=== PATIENT | male | born 1950 | race Caucasian/White ===

== ENCOUNTER → 2023-10-20 10:18 | Outpatient (REF) | payer MEDICARE, OTHER, SELFPAY ==
[2023-10-20 12:36] LABS: HDL Cholesterol 35 mg/dl; LDL Cholesterol, Calculated 73 mg/dl; Total Cholesterol 143 mg/dl (50-199); Triglyceride 177 mg/dl (10-149); Very Low Density Lipoprotein 35 mg/dl (0-30)
[2023-10-20 13:05] LABS: Glycohemoglobin (HgbA1c) 6.2 % (4.0-5.6)
== END ==
LOC: HWLAB 10:18
PROVIDERS: ATTENDING PHYSICIAN Student in an Organized Health Care Education/Training Program
DX: E78.00 Pure hypercholesterolemia, unspecified (principal); I10 Essential (primary) hypertension; R73.03 Prediabetes
CPT/HCPCS: 36415; 80061; 83036

== ENCOUNTER → 2023-12-22 08:43 | Outpatient (REF) | payer MEDICARE, OTHER, SELFPAY ==
[2023-12-22 13:01] LABS: TSH Reflex To Free T4 1.54 uIU/ml (0.47-4.68)
[2023-12-22 13:36] LABS: Folate 7.5 ng/ml (2.76-20); Vitamin B12 223 pg/ml (239-931)
== END ==
LOC: HWRAD 08:43
PROVIDERS: ATTENDING PHYSICIAN Student in an Organized Health Care Education/Training Program; FAMILY PHYSICIAN Family Medicine; REFERRING PHYSICIAN Nurse Practitioner Adult Health
DX: Z87.891 Personal history of nicotine dependence (principal); R41.3 Other amnesia; E53.8 Deficiency of other specified B group vitamins; G25.0 Essential tremor; Z86.73 Personal history of transient ischemic attack (TIA), and cerebral infarction without residual deficits
CPT/HCPCS: 36415; 71271; 82607; 82746; 84443

== ENCOUNTER → 2024-06-07 08:36 | Outpatient (REF) | payer MEDICARE, OTHER, SELFPAY ==
[2024-06-07 12:54] LABS: % Basophils 0.7 % (0-2); % Immature Granulocytes 0.6 % (0-0.5); % Lymphocytes 28.7 % (20.5-51.1); % Monocytes 10.2 % (1.7-9.3); % Neutrophils 56.8 % (42.2-75.2); Absolute Basophils 0.1 10^3/uL (0-0.2); Absolute Eosinophils 0.3 10^3/uL (0-0.7); Absolute Immature Granulocytes 0.1 10^3/uL (0-0.05); Absolute Monocytes 1.1 10^3/uL (0.1-0.6); Hematocrit 46.4 % (39.0-52.0); Hemoglobin 14.9 g/dL (13.0-18.0); Mean Corp Hgb Conc. 32.1 g/dL (33.0-37.0); Mean Corpuscular Hgb 31.4 pg (27.0-31.0); Mean Corpuscular Volume 97.9 fL (80.0-94.0); Mean Platelet Volume 10.6 fL (7.4-10.4); Nucleated Red Blood Cells % 0 % (-); Platelet Count 251 10^3/uL (130-400); Red Blood Cell Count 4.74 10^6/uL (4.70-6.10); Red Cell Dist. Width 14.2 % (11.5-14.5); White Blood Cell Count 10.5 10^3/uL (4.8-10.8)
[2024-06-07 13:07] LABS: Glycohemoglobin (HgbA1c) 6.2 % (4.0-5.6)
[2024-06-07 13:40] LABS: ALT (SGPT) 25 U/L (0-50); AST (SGOT) 25 U/L (17-59); Albumin 4.7 g/dl (3.5-5.0); Alkaline Phosphatase 111 U/L (38-126); Blood Urea Nitrogen 27 mg/dl (9-20); Carbon Dioxide 25 mmol/L (22-30); Chloride 107 mmol/L (98-107); Glucose 117 mg/dl (70-99); HDL Cholesterol 36 mg/dl; LDL Cholesterol, Calculated 85 mg/dl; Potassium 4.9 mmol/L (3.5-5.1); Sodium 144 mmol/L (135-145); Total Bilirubin 0.7 mg/dl (0.2-1.3); Total Cholesterol 146 mg/dl (50-199); Total Protein 7.6 g/dl (6.3-8.2); Triglyceride 126 mg/dl (10-149); Very Low Density Lipoprotein 25 mg/dl (0-30); eGFR > 60.00
[2024-06-07 13:56] LABS: Microalbumin, Random Urine 3.4 mg/dl (0.6-1.7); Microalbumin/creatinine Ratio 27.6 mg/g
[2024-06-07 13:57] LABS: Urine Albumin 1+ (Neg - Trace); Urine Bilirubin Negative (Negative); Urine Character Clear (Clear); Urine Color Yellow; Urine Glucose Negative (Negative); Urine Ketone Negative (Negative); Urine Leukocyte Negative (Negative); Urine Nitrite Negative (Negative); Urine Occult Blood Negative (Negative); Urine Urobilinogen Negative (Neg - 1+)
[2024-06-07 14:08] LABS: PSA, Total - Screen 1.58 ng/ml (0.0-4.0); TSH Reflex To Free T4 1.46 uIU/ml (0.47-4.68)
[2024-06-07 14:19] LABS: Urine Red Blood Cell 0-2 /HPF (0-2); Urine White Cell 0-2 /HPF (0-5)
[2024-06-07 14:27] LABS: Vitamin B12 729 pg/ml (239-931)
== END ==
LOC: HWLAB 08:36
PROVIDERS: ATTENDING PHYSICIAN Family Medicine
DX: Z86.73 Personal history of transient ischemic attack (TIA), and cerebral infarction without residual deficits (principal); Z13.0 Encounter for screening for diseases of the blood and blood-forming organs and certain disorders involving the immune mechanism; E78.00 Pure hypercholesterolemia, unspecified; I10 Essential (primary) hypertension; E66.9 Obesity, unspecified; R25.1 Tremor, unspecified; Z12.5 Encounter for screening for malignant neoplasm of prostate; E53.8 Deficiency of other specified B group vitamins; R73.03 Prediabetes; Z13.89 Encounter for screening for other disorder
CPT/HCPCS: 36415; 80053; 80061; 81003; 81015; 82043; 82570; 82607; 83036; 84443; 85025; G0103

== ENCOUNTER → 2024-07-04 14:11 | Outpatient (REF) | payer MEDICARE, OTHER, SELFPAY | LOC: DHSLP 14:11 | PROVIDERS: ATTENDING PHYSICIAN Internal Medicine Critical Care Medicine; FAMILY PHYSICIAN Nurse Practitioner Adult Health | DX: G47.33 Obstructive sleep apnea (adult) (pediatric) (principal) | CPT/HCPCS: 95806 ==

== ENCOUNTER 2024-10-14 22:29 | Inpatient (IN) | payer MEDICARE, OTHER, SELFPAY ==
[2024-10-14 17:38] VITALS: BP 168/75
[2024-10-14 18:00] LABS: Hematocrit 41.3 % (39.0-52.0); Hemoglobin 14.0 g/dL (13.0-18.0); Mean Corp Hgb Conc. 33.9 g/dL (33.0-37.0); Mean Corpuscular Volume 93.7 fL (80.0-94.0); Nucleated Red Blood Cells % 0 % (-); Platelet Count 198 10^3/uL (130-400); Red Cell Dist. Width 14.0 % (11.5-14.5)
[2024-10-14 18:11] LABS: ALT (SGPT) 24 U/L (0-50); AST (SGOT) 26 U/L (17-59); Albumin 4.3 g/dl (3.5-5.0); Alkaline Phosphatase 94 U/L (38-126); Blood Urea Nitrogen 20 mg/dl (9-20); Calcium 9.5 mg/dl (8.4-10.2); Carbon Dioxide 23 mmol/L (22-30); Chloride 107 mmol/L (98-107); Glucose 111 mg/dl (70-99); Potassium 4.2 mmol/L (3.5-5.1); Sodium 138 mmol/L (135-145); Total Protein 7.1 g/dl (6.3-8.2); eGFR > 60.00
--- NOTE | 2024-10-14 18:23 | ED.GENMED ---
History of Present Illness
General
Chief Complaint: Change in Mental Status
Time Seen by Provider: 10/14/24 18:01
History of Present Illness
History of Present Illness:
74-year-old male with history of hypertension and hyperlipidemia presents to the emergency department for evaluation of confusion. Does have underlying dementia however states over the past 1 to 2 days has had waxing waning episodes of severe
aphasia and confusion. Noted to be febrile on arrival. Patient essentially unable to provide any history at this point.
Past History
Past History
ED Past Medical History: HTN and Hypercholesterolemia
ED Past Surgical History: None
Social History
Tobacco: Smoker
Alcohol: Occasional
Personal:
Living: with family
Review of Systems
Review of Systems
Allergies reviewed?: Yes
All Other Systems: ROS reviewed and negative except as documented in HPI and ROS
Phy Exam
Physical Exam
Physical Exam:
GEN: Well appearing, NAD, WDWN
HEENT: Oral mucosa moist, no scleral icterus
Cardiac: Mildly tachycardic, regular
Lung: No respiratory distress, no tachypnea, lungs clear to auscultation bilateral
MSK: No gross deformity or injuries
Skin: Good color, no pallor or jaundice, no rashes
Neuro: Alert, follows commands, profoundly aphasic, nonsensical speech
Psych: Calm, cooperative
Sepsis
Sepsis Screening
Sepsis Assessment: Sepsis
Sepsis Screen
Sepsis Screen: Sepsis
Date: 10/15/24
Time: 00:58
Course
Orders/Labs/Results
Orders:
Orders
10/14/24 17:46
COVID-19 Antigen Urgent
Source: Nasal Swab
Complete Blood Count/With Diff Urgent
Comprehensive Metabolic Panel Urgent
Blood Culture Urgent
RAFFAELE Source: Blood/Venous
Specimen Description:
Influenza A+B Rapid Molecular Urgent
RAFFAELE Source: Nasal Swab
Specimen Description:
10/14/24 17:51
Lactic Acid Urgent
10/14/24 18:36
Urinalysis Reflex To Culture Urgent
Date Specimen was Collected: 10/14/24
Time Specimen was Collected: 17:57
Urine Microscopic Reflex Cult Urgent
10/14/24 18:53
CT Head W/o Iv Contrast Urgent
Comment:
Reason For Exam: confusion, slurred speech, fever
CR Chest - 2 Views Urgent
Comment:
Reason For Exam: fever
10/14/24 19:01
Acetaminophen [Tylenol] 650 mg PO NOW STA
10/14/24 20:40
Blood Culture Urgent
RAFFAELE Source: Blood/Venous
Specimen Description:
10/14/24 21:05
CefTRIAXone [Rocephin] 2,000 mg IV NOW STA
10/14/24 21:06
Vancomycin [Vancocin] 2,000 mg 0.9% Sodium Chloride 500 ml [Nss] 500 ml IV NOW
10/14/24 21:23
Acyclovir [Zovirax Injection] 750 mg 0.9% Sodium Chloride 250 ml [Nss] 250 ml IV NOW
10/14/24 21:25
CSF Cell Count Urgent
Date Specimen was Collected: 10/14/24
Time Specimen was Collected: 21:06
CSF Tube Number: 1
Comment: Tube #1
Spinal Fluid Glucose Urgent
Date Specimen was Collected: 10/14/24
Time Specimen was Collected: 21:06
Spinal Fluid Protein Urgent
Date Specimen was Collected: 10/14/24
Time Specimen was Collected: 21:06
CSF Culture with Gram Stain Urgent
RAFFAELE Source: Csf
Specimen Description:
Date Specimen was Collected: 10/14/24
Time Specimen was Collected: 21:06
Meningitis Panel, CSF by PCR Urgent
RAFFAELE Source: Csf
Specimen Description:
10/14/24 21:55
Bladder Scan As Directed
Follow Bladder Retention/Intermittent Cath Algorithm?: Yes
PRN if no void in __ hours: 6
Frequency: Per Retention Algorithm
If Bladder Scan Result >: 400
then:: Straight cath
Straight Cath As Directed
Frequency: Per Retention Algorithm
Additional Instructions: straight cath as needed per acute urinary retention algorithm for 24 hrs
Additional Instructions: for bladder scan greater than 400 mL
Oxygen Therapy [O2 Therapy] [RESP] Routine
Nasal Cannula Liter Flow: 2 LPM
Titrate/Wean O2 to maintain O2 sat greater than (%): 92
10/14/24 21:59
Admit/Transfer Patient As Directed
Co-Sign Provider:
Level of Care: Inpatient admission
Assign to:: Medical/Surgical
Physician / Group: gemiin adrian
Diagnosis: Febrile illness unclear etiology pending LP
Reason for Hospitalization: Febrile illness unclear etiology pending LP
Expected length of stay greater than two midnights?: Yes
ELOS- Estimated Length of Stay in days: 3
I certify the patient meets the requirements for IP care: Yes
Code Status As Directed
Resuscitation Status: Full Code
10/14/24 22:02
PRN Pain Medication Management As Directed
May give lesser potent ordered pain med per pt: Yes
preference::
Protocol:: Medication orders for pain may be administered in a
manner that supports deferring to patient preference
when the pt is:
- Requesting an ordered lesser potent pain medication.
Least to most potent pain medications are defined
as: acetaminophen < NSAID < tramadol < opioids
(morphine, oxycodone, hydromorphone).
- Requesting a lesser dose of the same medication IF
ORDERED.
- Requesting a less intrusive route of administration
if both routes are prescribed by the provider (PO <
IV).
10/15/24 00:13
Acetaminophen [Tylenol] 650 mg PO Q4HPRN PRN
Albuterol [ProAIR HFA INHALER] 2 puff INH R Q4HPRN PRN
10/15/24 00:13
Activity As Directed
Activity Level: With Assistance
Intake/ Output As Directed
Frequency: Per unit guidelines
Pneumatic Compression Sleeves As Directed
Type: Knee high
Precautions As Directed
Type of Precautions: Other
Comment: fall
Vital Signs As Directed
Frequency: Per unit guidelines
O2 Therapy [RESP] Routine
Nasal Cannula Liter Flow: 2 LPM
Titrate/Wean O2 to maintain O2 sat greater than (%): 92
Pulse Ox/spot Check [RESP] Routine
Quantity: 1
Ot Eval And Treat Routine
Pt Eval And Treat Routine
Activity Level: As Tolerated
DX Deep Vein Thrombosis Video Routine
10/15/24 06:00
Complete Blood Count/With Diff IN AM
Comprehensive Metabolic Panel IN AM
Magnesium IN AM
10/15/24 08:00
Bupropion(12Hr)Sustain Release [WELLBUTRIN SR (12 hour sustained release)] 150 mg PO BID
10/15/24 Dinner
Regular
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
10/15/24 22:00
Atorvastatin [Lipitor] 10 mg PO HS
Lisinopril [Zestril] 5 mg PO HS
10/16/24 06:00
Complete Blood Count/With Diff IN AM
Comprehensive Metabolic Panel IN AM
10/17/24 06:00
Complete Blood Count/With Diff IN AM
Comprehensive Metabolic Panel IN AM
Abnormal Lab Results
10/14/24 10/14/24 10/14/24
17:46 18:36 21:25
WBC 14.2 H 10^3/uL
(4.8-10.8)
RBC 4.41 L 10^6/uL
(4.70-6.10)
MCH 31.7 H pg
(27.0-31.0)
Abs Immat Gran (auto) 0.1 H 10^3/uL
(0-0.05)
Absolute Neuts (auto) 12.5 H 10^3/uL
(1.4-6.5)
Absolute Lymphs (auto) 1.0 L 10^3/uL
(1.2-3.4)
Neutrophils % 88.0 H %
(42.2-75.2)
Lymphocytes % 6.8 L %
(20.5-51.1)
Glucose 111 H mg/dl
(70-99)
Ur Occult Blood Reflex 1+ A
(Negative)
Urine RBC 3-6 A /HPF
(0-2)
Urine Albumin (Reflex) 1+ A
(Neg - Trace)
CSF Total Protein 63 H mg/dl
(12-60)
10/14/24 17:46
10/14/24 17:46
Vital Signs
Initial and Last Documented VS:
Initial Vital Signs
Temp Pulse Resp BP Pulse Ox
102.8 F H 89 18 168/75 98
10/14/24 17:38 10/14/24 17:38 10/14/24 17:38 10/14/24 17:38 10/14/24 17:38
Last Documented Vital Signs
Temp Pulse Resp BP Pulse Ox
98.9 F 100 14 116/89 98
10/14/24 22:04 10/14/24 23:30 10/14/24 23:30 10/14/24 23:00 10/14/24 18:24
Procedures
Lumbar Puncture
Indication for procedure:: fever/encephalopathy w/o source
Procedure completed by: Augustine Bradford PA-C
Consent form signed: No
If no, reason: Emergency procedure (Verbal consent obtained from spouse)
Anesthesia/sedation: 1% Lidocaine
Preparation: cleaned with Betadine and cleaned with Hibiclens
Position: sitting
Needle Size: 22 gauge
Needle Type: Lumbar Needle
Number of attempts: 3
Dressing applied to puncture site: bandaid
Complications: none
MDM/Problems Addressed
MDM/Problems Addressed:
74-year-old male presents with fever and altered mental status. Broad workup revealed no clear acute etiology to symptoms thus lumbar puncture was obtained which yielded clear fluid and no signs of CSF infection. Will admit to the hospitalist
service for further workup and management
*Pulse Oximetry
SaO2: 98
Oxygen Mode of Delivery: Room air
Patient hypoxic: no
*Critical Care Note
Total Time (30-74mins, 75-104mins- exclusive of procedures): Not Applicable
ED Attending Note
-
Portions of this chart may have been created with voice recognition software.� Occasional wrong word or��sound alike� substitutions may have occurred due to the inherent limitations of voice recognition software.
Discharge Plan
Departure
Patient Disposition: Admit
Date of Disposition: 10/14/24
Time of Disposition: 21:08
Admit to: Med/Surg
Presentation/result/management discussed w/ accepting MD/DO: Hospitalist
Discharge Problem:
Fever, Toxic metabolic encephalopathy
Interventions
Interventions:
*Risk Screen - Suicide Last Done: 10/15/24 00:22
*General Assessment Last Done: 10/14/24 17:38
*Neglect/Abuse Screening Last Done: 10/14/24 17:38
*ED- Fall Risk Assessment Last Done: 10/14/24 17:38
*ED COVID-19 Vaccine History Last Done: 10/15/24 00:22
*Nursing Disposition Last Done: 10/14/24 23:34
ED- Cardiac Assessment Last Done: 10/14/24 18:08
ED- Neurological Assessment Last Done: 10/14/24 18:08
ED- Pulmonary Assessment Last Done: 10/14/24 18:08
ED Swallowing Screen Last Done: 10/14/24 18:30
Discharge Date and Time
Discharge Date/Time: 10/14/24 23:35
[2024-10-14 18:34] LABS: COVID-19 Antigen Negative (Negative)
[2024-10-14 18:46] LABS: Urine Character Clear (Clear)
[2024-10-14 19:00] VITALS: BP 136/107
[2024-10-14 19:03] LABS: Urine White Cell 0-2 /HPF (0-5)
[2024-10-14] MEDS: TYLENOL 650 MG PO (19:07)
[2024-10-14 20:39] VITALS: BP 126/62
[2024-10-14 21:00] VITALS: BP 129/66
--- NOTE | 2024-10-14 21:24 | HPS.HSE ---
Family Physician
-
Family Physician: MEE Mars
Chief Complaint
-
Fever, confusion
History of Present Illness
74-year-old male with history of dementia new diagnosis per Leyla, has had increased confusion over the past 1 to 2 days then his baseline. He was noted to be febrile on admission 102.8F she was not aware he was running any fever. Patient is
oriented to name first and last, place, Leyla. He denies headache, blurred vision, sore throat, runny nose, chest pain, palpitations, cough, shortness of breath, abdominal pain, nausea, vomiting, diarrhea. He has history of sleep apnea with a
recent nasal pillow that his states he is not tolerating he is currently on room air at 88% and 93% on 2 L nasal cannula. They are waiting for someone to adjust his sleep apnea machine. He also complains of frequent urination at night with
difficulty voiding including dribbling. I made both the patient and aware we will check bladder scan for him as he may have BPH and not may be emptying well.
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
gangrenous appendicitis with perforation and abscess/generalized peritonitis 11/01/2017 and ileus, essential tremors
Medical History
Past Medical History
Past Medical History: Reports Other
Additional Past Medical History:
hypertension
hyperlipidemia
CVA x 2
squamous cell skin cancer on the nose with resection and reconstruction
smoker
gangrenous appendicitis with perforation and abscess/generalized peritonitis 11/01/2017 and ileus
Past Surgical History: Reports Other
Additional Past Surgical History:
gangrenous appendicitis with perforation and abscess/generalized peritonitis 11/01/2017 status post removal and ileus
Social History
Tobacco: Smoker (3 to 4 cigarettes a day prior 1 pack a day x 58 years)
Alcohol: None
Drug: None
Personal:
Living: With Family ( Leyla)
Employment: Retired
Family History
Family History: Unable to Obtain
Allergies / Home Medications
Allergies reflects when Allergies were last updated in [facility].
Home Medications with original date entered in [facility]
Allergy/Medication List:
Allergies
Allergy/AdvReac Type Severity Reaction Status Date / Time
No Known Allergies Allergy Verified 10/14/24 17:38
Home Medications
atorvastatin 10 mg tablet 10 mg PO HS 10/30/17
bupropion HCl 150 mg tablet,12 hr sustained-release 150 mg PO BID 10/30/17
lisinopril 5 mg tablet 5 mg PO HS 10/30/17
acetaminophen 325 mg tablet 650 mg (2 x 325 mg) PO Q4HPRN PRN mild to moderate pain #0 tabs 11/04/17
ibuprofen 200 mg tablet 400 - 600 mg (2 - 3 x 200 mg) PO Q6HPRN PRN mild to moderate pain #0 tabs 11/04/17
albuterol 90 mcg inhalation Q4H PRN Wheezing shortness of breath 10/14/24
Review of Systems
-
History Source: Patient and Family ( Pat at bedside)
A 12 point ROS was completed and negative except as noted: Yes
Constitutional: Reports Fever, Fatigue, Chills and Other (Increased confusion per ); Denies Weight Loss
EENT: Reports Other (Widespread periodontal disease exposing 3 corners of roots of teeth held in by plaque); Denies Sore Throat, Mouth Swelling or Runny Nose
Respiratory: Denies Cough or Trouble Breathing
Cardiac: Denies Chest Pain, Diaphoresis, Palpitations or Syncope
Abdomen/GI: Denies Abdominal Pain, Nausea, Vomiting, Diarrhea, Constipated, Bloody Stools, Black Stools or Anorexia
: Reports Frequency (With dribbling); Denies Dysuria, Flank Pain, Incontinence, Difficulty Voiding, Urgency, Bleeding or Dark Urine
Musculoskeletal: Denies Joint Pain or Edema
Skin: Denies Itching or Rash
Neurological: Denies Dizzy, Headache or Weakness
Endocrine: Reports No Symptoms
Hematologic/Lymphatic: Reports No Symptoms
Psych: Reports Calm
Physical Exam
Vital Signs
Vital Signs
Temp Pulse Resp BP Pulse Ox
102.8 F H 92 21 126/62 98
10/14/24 17:38 10/14/24 20:39 10/14/24 20:39 10/14/24 20:39 10/14/24 18:24
Physical Exam
General: Comfortable, Conversant, Fever and Chills; No Pain
HEENT: NormoCephalic, Anicteric, Moist mucous membranes, Atraumatic, PERRLA, [place] Conjunctivae, No Ptosis, Nose Appears Normal, Neck Nontender (Negative nuchal rigidity) and Other (Widespread periodontal disease exposing 3 corners of roots of teeth
held in by plaque); No Pharyngeal Erythema
Respiratory: Clear; No Wheezes, Rales, Rhonchi or Crackles
Cardiac: S1/S2 and Regular Rhythm; No Murmur, Rub, Gallop or Peripheral Edema
Breast: Deferred by me
GI: Soft, Non Tender, Non Distended, Normal Bowel Sounds and No Hepatosplenomegaly
Rectal: Deferred by Provider
Genito-urinary: Deferred by me
Musculoskeletal: No Clubbing, No Cyanosis and No Edema
Skin: Warm and Dry; No Rash
Neuro: Awake, Alert, Oriented (To name, place, some of history), Nonfocal/grossly intact, Cranial Nerves Intact and No Sensory Deficits; No Slurred Speech, Facial Droop, Tremors or Sedated
Psych: Calm
Laboratory Results
-
10/14/24 17:46
10/14/24 17:46
Laboratory Results
Lactic Acid 1.5 mmol/L (0.7-2.0) 10/14/24 17:51
Total Bilirubin 0.6 mg/dl (0.2-1.3) 10/14/24 17:46
AST 26 U/L (17-59) 10/14/24 17:46
ALT 24 U/L (0-50) 10/14/24 17:46
Alkaline Phosphatase 94 U/L (38-126) 10/14/24 17:46
Data Reviewed
-
CT Scan: Report Reviewed by me
Lab Data: Labs Reviewed by me
Impression/Plan
-
Impression/plan:
Admit to [facility]
#Fever unknown etiology
-102.8F, HR 92, 126/62
WBC 14.2 with left shift
- Influenza/COVID-negative
- Urinalysis negative
-Blood cultures x 2
- IV Rocephin, IV vancomycin continue patient was given single dose valacyclovir will hold
-Consult infectious disease
-LP fluid cytology pending
-Private room
CXR: No evidence for pneumonia
CT head:
1. Moderate diffuse cerebral and cerebellar volume loss.
2. 3.4 cm band of ENCEPHALOMALACIA in the LEFT BASAL GANGLIA and periventricular left frontal lobe consistent with either chronic infarction or a chronic resolved intraparenchymal hemorrhage.
3. Mild periventricular white matter leukoaraiosis.
4. No CT evidence for acute intracranial hemorrhage or transcortical infarct.
#Sleep apnea
New diagnosis for patient has tried nasal pillow but feels claustrophobic
-Currently 87% on room air 93% 2 L nasal cannula
#Difficulty with urination dribbling likely BPH
-Will check postvoid bladder scans
#New diagnosis of dementia�mild
Patient oriented to name, place, per Pat tends to get more confused at nighttime
- Fall precautions
#Hypertension
BP 126/62
Continue lisinopril 5 mg at bedtime
#Hyperlipidemia
Continue atorvastatin 10 mg at bedtime
#CVA x 2 reports a stroke in 2001 and 2005( requiring tPA) does not recall a hemorrhagic CVA
Per CT 3.4 cm band of ENCEPHALOMALACIA in the LEFT BASAL GANGLIA and periventricular left frontal lobe consistent with either chronic infarction or a chronic resolved intraparenchymal hemorrhage.
- Advised patient and not to be taking ibuprofen Advil Aleve Motrin, Aggrenox unless discussed with neurologist
#Smoker
smoker 3 to 4 cigarettes a day prior 1 pack a day x 54 years
-Cessation advised
- Continue albuterol inhaler as needed
#Periodontal disease severe
Patient's teeth randomly pop out
Will add soft diet recommended to follow-up with different dentist
#Essential tremors hands
Continue propranolol ER 120 mg daily with hold parameters
Other PMH:
Squamous cell skin cancer on the nose with resection and reconstruction
Smoker
Gangrenous appendicitis with perforation and abscess/generalized peritonitis 11/01/2017 and postop ileus
DVT prophylaxis
SCDs
Full code
[2024-10-14] MEDS: VANCOCIN 540 MG IV (21:35)
[2024-10-14 21:38] LABS: CSF Color Colorless
[2024-10-14] MEDS: ROCEPHIN 2000 MG IV (21:39)
--- NOTE | 2024-10-14 21:42 | W.PN.UPDATE ---
Update Note
Progress Note Update
Patient seen and controlled [employer]. I agree defined as mentioned physical. I concur with assessment and plan unless stated otherwise.
Briefly, this is a 74-year-old male with past medical history significant for hypertension, CVA, hyperlipidemia, dementia, emphysema and chronic tobacco use presenting to the emergency department with 2 days of waxing and waning alteration in mental
status. Apparently has been having severe episodes of aphasia and confusion. Was quite febrile in the emergency department without any other localizing point in history. Patient is unable to provide any additional history.
On arrival in the emergency department he had a temp of 102.8, blood pressure was 126/60 with a pulse of 90 and he was satting 98% on room air. Chest x-ray showed no acute infiltrates. CT of the head showed no acute interval disease.
Otherwise count 14.2 with otherwise normal CBC. Electrolytes and BUN/creatinine were all normal. LFT shows no acute abnormalities. UA was negative. Viral studies with COVID and influenza were negative.
LP performed with results pending.
Assessment and plan
74-year-old with history of dementia presenting to the emergency department with fever and altered mental status concerning for encephalitis/encephalopathy. He does not appear meningitic on exam but poor exam. No rash and no other source of
infection.
Admit to [facility]
- Status post LP, cell count, Gram stain, protein, glucose acute viral panel pcr pending
- Blood cultures
- Start vancomycin/ceftriaxone/acyclovir pending csf
- ID consultation
- IV fluids for now
DVT prophylaxis�heparin subcu
CODE STATUS�full code
[2024-10-14 21:47] LABS: Red Cell Count/CSF 1 mm^3; White Cell Count/CSF 1 mm^3 (0-5)
[2024-10-14 22:00] VITALS: BP 114/57
[2024-10-14] MEDS: ZOVIRAX INJECTION 265 MG IV (22:17)
[2024-10-14 23:00] VITALS: BP 116/89
--- NOTE | 2024-10-15 00:09 | PTCARENOTE ---
[facility] Pt attempting to get out of stretcher multiple times in the hallway. Pt forgetful and uncooperative. Pt transferred to bed in room and continues to try getting OOB. Pt unable to answer any admission questions d/t to poor
mentation status and confusion. Fall precautions in place. Frequent rounds continued.
[2024-10-15] MEDS: TYLENOL 650 MG PO ×2 (00:33→09:13)
[2024-10-15 01:08] VITALS: BP 124/73
[2024-10-15 06:43] LABS: Hematocrit 39.3 % (39.0-52.0); Hemoglobin 13.3 g/dL (13.0-18.0); Mean Corp Hgb Conc. 33.8 g/dL (33.0-37.0); Mean Corpuscular Volume 95.9 fL (80.0-94.0); Nucleated Red Blood Cells % 0 % (-); Platelet Count 177 10^3/uL (130-400); Red Cell Dist. Width 14.3 % (11.5-14.5)
--- NOTE | 2024-10-15 07:15 | W.PN.HOSP.TC ---
Addendum entered and electronically signed by Aysha Lira MD 10/15/24 16:32:
I saw and evaluated the patient independently. I reviewed the resident�s note and agree with findings and plan as documented by Dr. Rodríguez.
GENERAL: well developed, well nourished, male in no apparent distress
HEENT: NC/AT--poor dentition
HEART: regular rate and rhythm, +S1, +S2
LUNGS : clear to auscultation bilaterally
ABDOM: soft, nontender, nondistended, + bowel sounds
EXT: no cyanosis, clubbing, or edema
NEUROLOGIC: apparent dementia
Fever due to Unknown Cause--no obvious signs of infection--LP also negative--apprec ID--cont ABX for now--await cultures--COVID/flu neg
Severe Periodontal Disease --Patient with teeth that reportedly �pop� out---Possible origin for Fever of Unknown origin, though no abnormal tooth/gum/jaw findings were found on CT scan of the head---Encouraged outpatient follow up
Obstructive Sleep Apnea--New diagnosis. Noncompliant with CPAP due to claustrophobia
Mild Dementia with Increasing Confusion--New diagnosis of Dementia, Increasing confusion likely due to fever of unknown origin--at risk for delirium--follow
Essential Hypertension--Continue Lisinopril
Hyperlipidemia--Continue Atorvastatin
History of CVA x2--CT on 10/14/2024 demonstrated a 3.4 cm band of encephalomalacia in the left basal ganglia and periventricular left frontal lobe consistent with chronic infarction or chronic resolved hemorrhage--Patient should continue to avoid
NSAIDs
Tobacco Dependence--Patient smoked 1 ppd for 54 years, currently smokes 3-4 per day--Encouraged cessation--might need nicotine patch--Continue albuterol inhaler PRN for SOB
Essential Tremors--Continue home meds (Propranolol) with hold parameters
DVT proph
code status--FULL CODE
Original Note:
Today's Communication/Plan
-
Pending blood cultures
Assessment / Plan
Assessment / Plan
Assessment:
This is a 74 y/o male with pmhx of a new diagnosis of dementia and sleep apnea, hyperlipidemia, essential hypertension, CVA x2 (2001 and 2005). presented to the ED on 10/14/2024 with increasing confusion over the last 1-2 days found to have a fever
of 102.8 with no clear infection.
Plan:
Fever due to Unknown Cause
-Temperature 102.8, HR 92, BP 126/62, WBC 14.2 in the ED
-Unknown start date
-Current Temperature 99.5F on Acetaminophen
-UA, Influenza, COVID, Lumbar puncture cytology negative
-Blood cultures x2,
-Continue IV Rocephin and vancomycin
-Infectious Disease is following, will appreciate their insight.
Severe Periodontal Disease
-Patient with teeth that reportedly �pop� out
-Possible origin for Fever of Unknown origin, though no abnormal tooth/gum/jaw findings were found on CT scan of the head
-Continue soft diet
-Encouraged outpatient follow up
-T/c formal imaging assessment of teeth and jaw to rule out cause
Obstructive Sleep Apnea
-New diagnosis. Noncompliant with CPAP due to claustrophobia
-Encouraged follow up outpatient
Mild Dementia with Increasing Confusion
-New diagnosis of Dementia, Increasing confusion likely 2/2 to fever of unknown origin
-Patient at risk for Delirium
-Maintain fall precautions
Essential Hypertension
-Continue home meds (Lisinopril)
Hyperlipidemia
-Continue home meds (Atorvastatin)
History of CVA x2
-CT on 10/14/2024 demonstrated a 3.4 cm band of encephalomalacia in the left basal ganglia and periventricular left frontal lobe consistent with chronic infarction or chronic resolved hemorrhage
-Patient should continue to avoid NSAIDs
Tobacco Dependence
-Patient smoked 1 ppd for 54 years, currently smokes 3-4 per day
-Encouraged cessation
-Continue albuterol inhaler PRN for SOB
Essential Tremors
-Continue home meds (Propranolol) with hold parameters
Anticipated Discharge: 24 - 48 hours
Subjective/Interval History
-
Date of Service: October 15, 2024
Patient was doing well today. He denies abdominal pain, nausea, vomiting, headache, dizziness, chest pain, shortness of breath. When asked if he felt like he had any fevers, he stated he was told he had on in the ED. He does report he is aware he
had some confusion leading up to his hospitalization, but is unable to describe what happened. He reports feeling much better today regardless.
Objective Data
-
Labs:
Laboratory Results
10/15/24
06:27
WBC 9.3
Hgb 13.3
Hct 39.3
Plt Count 177
Sodium Pending
Potassium Pending
Chloride Pending
Carbon Dioxide Pending
BUN Pending
Creatinine Pending
Glucose Pending
Calcium Pending
Total Bilirubin Pending
AST Pending
ALT Pending
Alkaline Phosphatase Pending
Vital Signs:
Vital Signs
Temp Pulse Resp BP Pulse Ox
97.9 F 99 20 124/73 92
10/15/24 03:07 10/15/24 01:08 10/15/24 01:08 10/15/24 01:08 10/15/24 01:08
I&O
10/14/24 10/15/24 10/16/24
06:59 06:59 06:59
Output Total 375 / 375
Balance -375 / -375
Review of Systems
-
Unable to obtain full review of systems at this time due to: Dementia
History Source: Patient
Constitutional: Reports Fever; Denies Fatigue or Chills
Respiratory: Denies Cough, Trouble Breathing or Wheezing
Cardiac: Denies Chest Pain or Palpitations
Abdomen/GI: Denies Abdominal Pain, Nausea, Vomiting, Diarrhea or Constipated
Genitourinary: Denies Dysuria or Frequency
Musculoskeletal: Denies Joint Pain, Joint Swelling, Muscle Pain or Muscle Stiffness
Skin: Denies Itching or Rash
Neuro: Denies Dizzy, Headache, Weakness, Numbness or Lightheadedness
Physical Exam
-
General: Well Developed, Well Nourished, No Apparent Distress and Comfortable
HEENT: Normocephalic and Atraumatic
Respiratory: Clear to Auscultation
Cardiac: Regular Rhythm and S1/S2
GI: Soft, Nontender and Normal Bowel Sounds
Skin: Warm and Dry
Neuro: Awake and Alert
Psych: Calm
[2024-10-15 07:50] LABS: ALT (SGPT) 21 U/L (0-50); AST (SGOT) 26 U/L (17-59); Albumin 3.8 g/dl (3.5-5.0); Alkaline Phosphatase 78 U/L (38-126); Blood Urea Nitrogen 20 mg/dl (9-20); Calcium 9.1 mg/dl (8.4-10.2); Carbon Dioxide 24 mmol/L (22-30); Chloride 106 mmol/L (98-107); Estimated Creatinine Clearance 54 ml/min; Glucose 93 mg/dl (70-99); Magnesium 1.8 mg/dl (1.6-2.3); Potassium 4.3 mmol/L (3.5-5.1); Sodium 139 mmol/L (135-145); Total Protein 6.6 g/dl (6.3-8.2); eGFR > 60.00
--- NOTE | 2024-10-15 08:16 | PHA.VAN.IN ---
Assessment
- Assessment
Renal Function: Appears similar to baseline
Concomitant Antimicrobials: CEFTRIAXONE
AUC Dosing Plan
- Empiric Dosing
Initial / Loading Dose: 2000MG 10/15
Maintenance Regimen: 1500MG
Estimated AUC (mcg*h/mL): 478
Estimated Peak (mcg*h/mL): 32.7
Estimated Trough (mcg/ml): 10.8
Estimated Half Life (H): 14.1
- Monitoring
No levels ordered at this time: CONSIDER NEXT FEW DAYS
Pharmacokinetics Vancomycin I
- -
Patient Age: 74
Patient Sex: Male
Vancomycin Day #: 1
Indication: Other
Requesting Provider: CORTNEY SHIPLEY
Pertinent Antimicrobial Allergies:
NKDA
Height / Weight:
Height 5 ft 10 in
Actual Weight 94.5 kg
IBW in k
- Vital Signs / Lab Results
Temp Pulse Resp BP Pulse Ox
97.9 F 99 20 124/73 92
10/15/24 03:07 10/15/24 01:08 10/15/24 01:08 10/15/24 01:08 10/15/24 01:08
Lab Results - Hematology
10/14/24 10/15/24
17:46 06:27
WBC 14.2 H 9.3
Lab Results - Chemistry
10/14/24 10/15/24
17:46 06:27
BUN 20 20
Creatinine 1.1 1.2
Estimated Creat Clear 54
Albumin 4.3 3.8
10/14/24
17:51
Lactic Acid 1.5
Lab Results - Urine
10/14/24
18:36
Urine Nitrite (Reflex) Negative
Leukocyte Esterase Rfl Negative
Urine WBC (Reflex) 0-2
Ur Squamous Epith Cells 3-5
Microbiology Results
10/14/24 21:25 Gram Stain - Preliminary
Csf
10/14/24 21:25 Meningitis/Encephalitis Panel (PCR) - Final
Csf
10/14/24 17:46 Influenza Types A & B (EVER) - Final
Nasal Swab Negative for Influenza A & B, NAAT
Negative results must be combined with clinical observations
and patient history.
Nucleic Acid Amplification test (NAAT)performed on the
[employer] platform.
[2024-10-15] MEDS: WELLBUTRIN SR (12 hour sustained release) 150 MG PO ×2 (08:17→20:12)
[2024-10-15 08:53] VITALS: BP 125/70
--- NOTE | 2024-10-15 12:05 | CON.ID ---
Consultation
-
Date/Time Consultation Requested: 10/15/2024 0013
Date/Time Consultation Performed: 10/15/2024 1152
Requesting Provider: Renee Berrios
Performing Provider: Dr. Little
Reason for Consultation: Encephalopathy
Chief Complaint / Past History
History of Present Illness
Alexey Dia is a 74-year-old man with a significant past medical history of dementia and prior CVA being evaluated at the request of Renee Berrios in regards to change in mental status. History is obtained from chart review, along with patient
interview.
The patient presented to the emergency room on 10/14 secondary to reported confusion and episodes of aphasia over the prior 1 to 2 days. In the ER, he was found to be 102.8 degrees, and initial workup revealed a white count of 14.2. The patient
ultimately underwent LP with a finding only of mildly elevated protein.
The patient himself reports that he was recently down at the [facility] with friends. He notes that he had 'several beers' and was playing some type of game with the friends, but he could not remember anything further.
At this time he reports feeling hot and sweaty, and feels like he has a fever. He denies any headache. He denies any chest pain or shortness of breath. He denies any abdominal pain, nausea or vomiting.
Past History
Additional Past Medical History:
Emphysema
HTN
HLD
Dementia
Hx CVA
Past Surgical History: None
Allergy History:
No Known Allergies Allergy (Verified 10/14/24 17:38)
Medications Reviewed: Yes
Current Antibiotics:
Vancomycin
Ceftriaxone
Social History
Tobacco: Smoker (1/2 pack/day)
Alcohol: Occasional
Drug: None
Personal:
Living: With Family
Employment: Retired
Family History
Family History: Not Pertinent
Review of Systems
Vital Signs
Temp Pulse Resp BP Pulse Ox
99.5 F 86 17 125/70 95
10/15/24 08:53 10/15/24 08:53 10/15/24 08:53 10/15/24 08:53 10/15/24 08:53
Physical Exam
Physical Exam
Constitutional: No Acute Distress, Well Developed, Comfortable and Non-toxic
Head: Normocephalic
Eyes: Pupils Equal, Pupils Round, No Conjunctival Hemorrhage and Sclera Anicteric
Oral: No Thrush and No Ulcers
Cardiovascular: Regular Rate and S1/S2; Negative S3/S4 or Murmur
Pulmonary: Clear; Negative Wheezes, Rales or Rhonchi
Gastrointestinal: Soft, Non Tender, Non Distended and Normal Bowel Sounds
Genito-Urinary: Negative Muniz
Extremities: Negative Edema, Cyanosis or Erythema
Musculoskeletal: Negative Joint Swelling or Joint Effusion
Skin: Warm and Dry; Negative Rash or Jaundice
Neurological: AO x 3
Psychological: Calm
.
Lab / Diagnostic Study Results
10/15/24 06:27
10/15/24 06:27
Abs Immat Gran (auto) 0.1 10^3/uL (0-0.05) H 10/15/24 06:27
Absolute Neuts (auto) 7.7 10^3/uL (1.4-6.5) H 10/15/24 06:27
Absolute Lymphs (auto) 1.0 10^3/uL (1.2-3.4) L 10/15/24 06:27
Absolute Monos (auto) 0.4 10^3/uL (0.1-0.6) 10/15/24 06:27
Absolute Basos (auto) 0.0 10^3/uL (0-0.2) 10/15/24 06:27
Immature Gran % 0.5 % (0-0.5) 10/15/24 06:27
Neutrophils % 83.3 % (42.2-75.2) H 10/15/24 06:27
Lymphocytes % 11.2 % (20.5-51.1) L 10/15/24 06:27
Monocytes % 4.7 % (1.7-9.3) 10/15/24 06:27
Eosinophils % 0.0 % (0-6) 10/15/24 06:27
Basophils % 0.3 % (0-2) 10/15/24 06:27
Lactic Acid 1.5 mmol/L (0.7-2.0) 10/14/24 17:51
Ur Squamous Epith Cells 3-5 /LPF (Few) 10/14/24 18:36
Microbiology Results
Micro:
10/14/24 21:25 CSF Culture - Preliminary
Csf No Growth After 18-24 Hours
Gram Stain - Preliminary
10/14/24 21:25 Meningitis/Encephalitis Panel (PCR) - Final
Csf
10/14/24 20:40 Blood Culture - Pending
Blood/Venous
10/14/24 17:46 Influenza Types A & B (EVER) - Final
Nasal Swab Negative for Influenza A & B, NAAT
Negative results must be combined with clinical observations
and patient history.
Nucleic Acid Amplification test (NAAT)performed on the
[employer] platform.
10/14/24 17:46 Blood Culture - Pending
Blood/Venous
Imaging:
10/14/2024 CT head without contrast: moderate diffuse cerebral and cerebellar volume loss. 3.4 cm band of encephalomalacia in the left basal ganglia. Mild periventricular white matter leukoaraiosis. No CT evidence for acute intracranial hemorrhage
or transcortical infarct.
Assessment / Plan
Acute encephalopathy of unclear etiology
Fever
Leukocytosis; improved, although still with left shift
Emphysema
HTN
HLD
Dementia
Hx CVA
Recommendations:
At present, white count has improved, although patient still with left shift.
CSF studies essentially negative.
Blood cultures are currently pending.
Would discontinue further vancomycin. Continue with empiric ceftriaxone
Monitor white count and temperature curve.
Monitor for clinical improvement.
Further recommendations as additional data is returned.
[2024-10-15 14:26] VITALS: BP 108/51; PULSE 70; O2SAT 93
[2024-10-15 15:00] VITALS: BP 133/76
[2024-10-15 15:43] VITALS: BP 108/51; PULSE 73; O2SAT 93
--- NOTE | 2024-10-15 16:32 | CM ---
manager of purchasing reviewed patient's chart and met with patient, his spouse and daughter at bedside, patient lives with spouse in a 2 story home, patient is independent with adl's and ambulation, no dme, patient was driving but driving privileges have
been revoked by physician. Patient understands decision.
PCP: Dr. Malave
Pharmacy: [facility]
[2024-10-15] MEDS: ZESTRIL 5 MG PO (21:24)
[2024-10-15] MEDS: LIPITOR 10 MG PO (21:24)
[2024-10-15] MEDS: ROCEPHIN 1000 MG IV (21:25)
[2024-10-15] MEDS: STERILE WATER FOR INJECTION 10 ML IV (21:25)
[2024-10-15 23:59] VITALS: BP 116/59
[2024-10-16 06:00] VITALS: BMI 28.6
[2024-10-16 06:28] LABS: Hematocrit 38.0 % (39.0-52.0); Hemoglobin 13.1 g/dL (13.0-18.0); Mean Corp Hgb Conc. 34.5 g/dL (33.0-37.0); Mean Corpuscular Volume 94.1 fL (80.0-94.0); Nucleated Red Blood Cells % 0 % (-); Platelet Count 150 10^3/uL (130-400); Red Cell Dist. Width 14.2 % (11.5-14.5)
[2024-10-16 07:02] LABS: ALT (SGPT) 28 U/L (0-50); AST (SGOT) 45 U/L (17-59); Albumin 3.7 g/dl (3.5-5.0); Alkaline Phosphatase 66 U/L (38-126); Blood Urea Nitrogen 22 mg/dl (9-20); Calcium 8.5 mg/dl (8.4-10.2); Carbon Dioxide 20 mmol/L (22-30); Chloride 107 mmol/L (98-107); Estimated Creatinine Clearance 54 ml/min; Glucose 95 mg/dl (70-99); Potassium 4.4 mmol/L (3.5-5.1); Sodium 136 mmol/L (135-145); Total Protein 6.5 g/dl (6.3-8.2); eGFR > 60.00
--- NOTE | 2024-10-16 07:03 | W.PN.HOSP.TC ---
Addendum entered and electronically signed by Aysha Lira MD 10/16/24 13:35:
I saw and evaluated the patient independently. I reviewed the resident�s note and agree with findings and plan as documented by Dr. Rodríguez.
GENERAL: well developed, well nourished, male in no apparent distress
HEENT: NC/AT--poor dentition
HEART: regular rate and rhythm, +S1, +S2
LUNGS : clear to auscultation bilaterally
ABDOM: soft, nontender, nondistended, + bowel sounds
EXT: no cyanosis, clubbing, or edema
NEUROLOGIC: apparent dementia
Fever due to Pseudomonas bacteremia?--no obvious signs of infection, LP negative--blood culture positive for pseudomonas--apprec ID--cont ABX for now
Severe Periodontal Disease --Patient with teeth that reportedly �pop� out--- no abnormal tooth/gum/jaw findings were found on CT scan of the head---Encouraged outpatient follow up
Obstructive Sleep Apnea--New diagnosis. Noncompliant with CPAP due to claustrophobia
Mild Dementia with Increasing Confusion----mental status is improving, now mildly confused--New diagnosis of Dementia
Essential Hypertension--Continue Lisinopril
Hyperlipidemia--Continue Atorvastatin
History of CVA x2--CT on 10/14/2024 demonstrated a 3.4 cm band of encephalomalacia in the left basal ganglia and periventricular left frontal lobe consistent with chronic infarction or chronic resolved hemorrhage--Patient should continue to avoid
NSAIDs
Tobacco Dependence--Patient smoked 1 ppd for 54 years, currently smokes 3-4 per day--Encouraged cessation--might need nicotine patch--Continue albuterol inhaler PRN for SOB
Essential Tremors--Continue home meds (Propranolol) with hold parameters
DVT proph
code status--FULL CODE
Original Note:
Today's Communication/Plan
-
Blood cultures positive for Pseudomonas,
Assessment / Plan
Assessment / Plan
Assessment:
This is a 74 y/o male with pmhx of a new diagnosis of dementia and sleep apnea, hyperlipidemia, essential hypertension, CVA x2 (2001 and 2005). presented to the ED on 10/14/2024 with increasing confusion over the last 1-2 days found to have a fever
of 102.8 with no clear infection.
Plan:
Bacteremia with Unknown Source of Original Infection
-Temperature 102.8, HR 92, BP 126/62, WBC 14.2 in the ED
-Current Temperature has remained less than 100F on Acetaminophen
-UA, Influenza, COVID, Lumbar puncture cytology negative
-Blood cultures x2, One culture has no growth to date, the other is positive for Pseudomonas. Unclear infectious origin of bacteremia at this point
-Infectious Disease is following, will appreciate their insight into most appropriate antibiotic therapy. Patient is currently on IV Rocephin
Severe Periodontal Disease
-Patient with teeth that reportedly �pop� out
-No abnormal tooth/gum/jaw findings were found on CT scan of the head
-Continue soft diet
-Encouraged outpatient follow up
Obstructive Sleep Apnea
-New diagnosis. Noncompliant with CPAP due to claustrophobia
-Encouraged follow up outpatient
Mild Dementia with Increasing Confusion
-New diagnosis of Dementia, Increasing confusion likely 2/2 to fever of unknown origin
-Patient at risk for Delirium
-Maintain fall precautions
Essential Hypertension
-Continue home meds (Lisinopril)
Hyperlipidemia
-Continue home meds (Atorvastatin)
History of CVA x2
-CT on 10/14/2024 demonstrated a 3.4 cm band of encephalomalacia in the left basal ganglia and periventricular left frontal lobe consistent with chronic infarction or chronic resolved hemorrhage
-Patient should continue to avoid NSAIDs
Tobacco Dependence
-Patient smoked 1 ppd for 54 years, currently smokes 3-4 per day
-Encouraged cessation
-Continue albuterol inhaler PRN for SOB
Essential Tremors
-Continue home meds (Propranolol) with hold parameters
Anticipated Discharge: 24 - 48 hours
Subjective/Interval History
-
Date of Service: October 16, 2024
Patient was doing well on arrival. He had no concerns or complaints today. I spent time reviewing the results of his positive blood culture with him. He states he was not sure where the infection could have originated from.
Objective Data
-
Labs:
Laboratory Results
10/16/24
06:05
WBC 7.9
Hgb 13.1
Hct 38.0 L
Plt Count 150
Sodium 136
Potassium 4.4
Chloride 107
Carbon Dioxide 20 L
BUN 22 H
Creatinine 1.2
Glucose 95
Calcium 8.5
Total Bilirubin 0.7
AST 45
ALT 28
Alkaline Phosphatase 66
Vital Signs:
Vital Signs
Temp Pulse Resp BP Pulse Ox
97.8 F 80 18 116/59 97
10/15/24 23:59 10/15/24 23:59 10/15/24 23:59 10/15/24 23:59 10/15/24 23:59
I&O
10/15/24 10/16/24 10/17/24
06:59 06:59 06:59
Intake Total 960 / 960
Output Total 375 / 375
Balance -375 / -375 960 / 960
Review of Systems
-
Unable to obtain full review of systems at this time due to: Dementia
History Source: Patient
Constitutional: Denies Fever or Chills
EENT: Reports Other (Denies Ear Pain); Denies Sore Throat, Blurry Vision or Eye Pain
Respiratory: Denies Cough or Trouble Breathing
Cardiac: Denies Chest Pain
Abdomen/GI: Denies Abdominal Pain, Nausea, Vomiting, Diarrhea or Constipated
Genitourinary: Denies Dysuria or Frequency
Skin: Reports No Symptoms
Physical Exam
-
General: Well Developed, Well Nourished, No Apparent Distress and Comfortable
HEENT: Normocephalic and Atraumatic
Respiratory: Clear to Auscultation
Cardiac: Regular Rhythm and S1/S2
GI: Soft, Nontender, Nondistended and Normal Bowel Sounds
Skin: Warm and Dry
Neuro: Awake and Alert
Psych: Calm
[2024-10-16] MEDS: WELLBUTRIN SR (12 hour sustained release) 150 MG PO ×2 (07:50→20:02)
[2024-10-16 08:00] VITALS: BP 110/65
[2024-10-16 15:00] VITALS: BP 109/62
--- NOTE | 2024-10-16 15:43 | W.PN.ID1 ---
Date of Service
Date of Service: October 16, 2024
Today's Communication
Continue antibiotics. Transition to cefepime. Repeat blood cultures.
Assessment / Plan
Acute encephalopathy of unclear etiology
Fever
Pseudomonas bacteremia of unclear etiology.
Leukocytosis; improved, although still with left shift
Emphysema
HTN
HLD
Dementia
Hx CVA
Recommendations:
CSF studies essentially negative.
Blood culture positive for Pseudomonas from 1 of 4 bottles. Source unclear.
Discontinue further ceftriaxone. Begin empiric cefepime. Repeat blood cultures.
Await final susceptibility data to guide further antimicrobial selection and potential de-escalation.
Monitor white count and temperature curve.
Monitor for clinical improvement.
����������������������������������������������������������
Chief Complaint
-: Bacteremia
Subjective / Review of Systems
Review of Systems: No Fever, No Chills and No Abdominal Pain
Vital Signs / Physical Exam
Vital Signs
Vital Signs
Temp Pulse Resp BP Pulse Ox
98.8 F 53 16 110/65 94
10/16/24 08:00 10/16/24 08:00 10/16/24 08:00 10/16/24 08:00 10/16/24 08:00
Physical Exam
Constitutional: No Acute Distress, Comfortable and Non-toxic
Eyes: No Conjunctival Hemorrhage and Sclera Anicteric
Cardiovascular: S1/S2; Negative S3/S4
Pulmonary: Non Labored
Gastrointestinal: Soft, Non Tender, Non Distended, No Rebound and No Guarding
Neurological: Awake and Alert
Psychological: Calm
Objective Data
Lab Data
Lab Results
10/16/24 06:05
10/16/24 06:05
Estimated Creat Clear 54 ml/min 10/16/24 06:05
Lactic Acid 1.5 mmol/L (0.7-2.0) 10/14/24 17:51
Total Bilirubin 0.7 mg/dl (0.2-1.3) 10/16/24 06:05
AST 45 U/L (17-59) 10/16/24 06:05
ALT 28 U/L (0-50) 10/16/24 06:05
Alkaline Phosphatase 66 U/L (38-126) 10/16/24 06:05
Most recent labs reviewed.
Micro Results:
10/14/24 17:46 Blood Culture - Preliminary
Blood/Venous Pseudomonas aeruginosa
Gram Stain - Preliminary
10/14/24 21:25 CSF Culture - Preliminary
Csf No Growth After 48 Hours
Gram Stain - Preliminary
10/14/24 20:40 Blood Culture - Preliminary
Blood/Venous No Growth in 24 hours- Final report to follow
10/14/24 21:25 Meningitis/Encephalitis Panel (PCR) - Final
Csf
10/14/24 17:46 Influenza Types A & B (EVER) - Final
Nasal Swab Negative for Influenza A & B, NAAT
Negative results must be combined with clinical observations
and patient history.
Nucleic Acid Amplification test (NAAT)performed on the
[employer] platform.
Imaging:
10/14/2024 CT head without contrast: moderate diffuse cerebral and cerebellar volume loss. 3.4 cm band of encephalomalacia in the left basal ganglia. Mild periventricular white matter leukoaraiosis. No CT evidence for acute intracranial hemorrhage
or transcortical infarct.
Care Review
Plan reviewed with: Physician (Hospitalist)
[2024-10-16] MEDS: STERILE WATER FOR INJECTION 10 ML IV ×2 (16:21→21:08)
[2024-10-16] MEDS: MAXIPIME 1000 MG IV ×2 (16:21→21:08)
[2024-10-16] MEDS: ZESTRIL 5 MG PO (21:07)
[2024-10-16] MEDS: LIPITOR 10 MG PO (21:07)
[2024-10-16 23:00] VITALS: BP 110/62
[2024-10-17] MEDS: STERILE WATER FOR INJECTION 10 ML IV ×3 (04:40→22:13)
[2024-10-17] MEDS: MAXIPIME 1000 MG IV ×4 (04:41→22:11)
--- NOTE | 2024-10-17 07:24 | W.PN.HOSP.TC ---
Today's Communication/Plan
-
New blood cultures pending
Assessment / Plan
Assessment / Plan
Assessment:
This is a 74 y/o male with pmhx of a new diagnosis of dementia and sleep apnea, hyperlipidemia, essential hypertension, CVA x2 (2001 and 2005). presented to the ED on 10/14/2024 with increasing confusion over the last 1-2 days found to have a fever
of 102.8 with no clear infection.
Plan:
Bacteremia with Unknown Source of Original Infection
-Temperature 102.8, HR 92, BP 126/62, WBC 14.2 in the ED
-Current Temperature has remained less than 100F on Acetaminophen
-UA, Influenza, COVID, Lumbar puncture cytology negative
-Blood cultures x2, One culture has no growth to date, the other is positive for Pseudomonas. Unclear infectious origin of bacteremia at this point
-Repeat Blood cultures x2 pending
-Infectious Disease is following, will appreciate their insight into most appropriate antibiotic therapy. Patient is currently on IV Cefepime
Severe Periodontal Disease
-Patient with teeth that reportedly �pop� out
-No abnormal tooth/gum/jaw findings were found on CT scan of the head
-Continue soft diet
-Encouraged outpatient follow up
Obstructive Sleep Apnea
-New diagnosis. Noncompliant with CPAP due to claustrophobia
-Encouraged follow up outpatient
Mild Dementia with Increasing Confusion
-New diagnosis of Dementia, Increasing confusion likely 2/2 to fever of unknown origin
-Patient at risk for Delirium
-Maintain fall precautions
Essential Hypertension
-Continue home meds (Lisinopril)
Hyperlipidemia
-Continue home meds (Atorvastatin)
History of CVA x2
-CT on 10/14/2024 demonstrated a 3.4 cm band of encephalomalacia in the left basal ganglia and periventricular left frontal lobe consistent with chronic infarction or chronic resolved hemorrhage
-Patient should continue to avoid NSAIDs
Tobacco Dependence
-Patient smoked 1 ppd for 54 years, currently smokes 3-4 per day
-Encouraged cessation
-Continue albuterol inhaler PRN for SOB
Essential Tremors
-Continue home meds (Propranolol) with hold parameters
Anticipated Discharge: Within 24 hours
Subjective/Interval History
-
Date of Service: October 17, 2024
Patient was awake when I arrived. He states that he is doing well, and has no concerns or complaints. We spent time discussing the results of his blood culture positive for pseudomonas, and he denied any shortness of breath, cough, wheezing, changes
in his vision, eye pain, ear pain, changes in hearing or any skin infections he was aware of. Overall he reports doing very well today.
Objective Data
-
Labs:
Laboratory Results
10/17/24
06:00
WBC Pending
Hgb Pending
Hct Pending
Plt Count Pending
Sodium Pending
Potassium Pending
Chloride Pending
Carbon Dioxide Pending
BUN Pending
Creatinine Pending
Glucose Pending
Calcium Pending
Total Bilirubin Pending
AST Pending
ALT Pending
Alkaline Phosphatase Pending
Vital Signs:
Vital Signs
Temp Pulse Resp BP Pulse Ox
97.7 F 87 20 110/62 93
10/16/24 23:00 10/16/24 23:00 10/16/24 23:00 10/16/24 23:00 10/16/24 23:00
I&O
10/16/24 10/17/24 10/18/24
06:59 06:59 06:59
Intake Total 960 / 960 1200 / 1200
Output Total 200 / 200
Balance 960 / 960 1000 / 1000
Review of Systems
-
History Source: Patient
Constitutional: Denies Fever, Weight Loss, Fatigue or Weakness
EENT: Denies Blurry Vision, Eye Pain, Dry Eyes, Decreased Vision, Tinnitis or Hearing Loss
Respiratory: Denies Cough, Trouble Breathing or Wheezing
Cardiac: Denies Chest Pain
Abdomen/GI: Denies Abdominal Pain, Nausea, Vomiting, Diarrhea or Constipated
Genitourinary: Denies Dysuria, Frequency or Flank Pain
Musculoskeletal: Denies Joint Pain or Muscle Pain
Skin: Denies Itching, Rash or Sores
Neuro: Denies Dizzy, Headache, Weakness or Numbness
Hematologic / Lymphatic: Reports Bruising (Accidental from hitting his hands on things while carrying groceries. Improving.)
Physical Exam
-
General: Well Developed, Well Nourished, No Apparent Distress and Comfortable
HEENT: Normocephalic, Atraumatic, Nose Appears Normal and Ears Appear Normal
Respiratory: Clear to Auscultation
Cardiac: Regular Rhythm and S1/S2
GI: Soft, Nontender, Nondistended and Normal Bowel Sounds
Skin: Warm, Dry and Other (Bruising on back of left hand, no signs of infection)
Neuro: Awake and Alert
Psych: Calm
[2024-10-17] MEDS: WELLBUTRIN SR (12 hour sustained release) 150 MG PO ×2 (07:41→20:04)
[2024-10-17 07:56] VITALS: BP 126/72
[2024-10-17 08:59] LABS: Hematocrit 39.3 % (39.0-52.0); Hemoglobin 13.1 g/dL (13.0-18.0); Mean Corp Hgb Conc. 33.3 g/dL (33.0-37.0); Mean Corpuscular Volume 94.7 fL (80.0-94.0); Nucleated Red Blood Cells % 0 % (-); Platelet Count 169 10^3/uL (130-400); Red Cell Dist. Width 14.2 % (11.5-14.5)
[2024-10-17 09:21] LABS: ALT (SGPT) 32 U/L (0-50); AST (SGOT) 41 U/L (17-59); Albumin 3.7 g/dl (3.5-5.0); Alkaline Phosphatase 84 U/L (38-126); Blood Urea Nitrogen 24 mg/dl (9-20); Calcium 9.1 mg/dl (8.4-10.2); Carbon Dioxide 23 mmol/L (22-30); Chloride 109 mmol/L (98-107); Estimated Creatinine Clearance 54 ml/min; Glucose 115 mg/dl (70-99); Potassium 4.3 mmol/L (3.5-5.1); Sodium 140 mmol/L (135-145); Total Protein 6.4 g/dl (6.3-8.2); eGFR > 60.00
[2024-10-17 09:33] VITALS: BP 102/68; BP 95/64; PULSE 103
--- NOTE | 2024-10-17 13:17 | W.PN.ID1 ---
Date of Service
Date of Service: October 17, 2024
Today's Communication
Continue antibiotics. See below�
Assessment / Plan
Acute encephalopathy of unclear etiology
Fever
Pseudomonas bacteremia of unclear etiology.
Leukocytosis; improved, although still with left shift
Emphysema
HTN
HLD
Dementia
Hx CVA
Recommendations:
CSF studies essentially negative.
Blood culture positive for Pseudomonas from 1 of 4 bottles. Source unclear.
Repeat blood cultures in progress.
Sensitivities of recovered isolate reviewed. Continue with cefepime while inpatient. If repeat blood cultures remain negative, can transition to Cipro 500 mg p.o. BID, to continue through 10/26/24
����������������������������������������������������������
Chief Complaint
-: Bacteremia
Subjective / Review of Systems
Review of Systems: No Fever, No Chills, No Palpitations, No Abdominal Pain, No Nausea, No Vomiting, No Diarrhea and No Dysuria
Vital Signs / Physical Exam
Vital Signs
Vital Signs
Temp Pulse Resp BP Pulse Ox
97.5 F 73 17 126/72 92
10/17/24 07:56 10/17/24 07:56 10/17/24 07:56 10/17/24 07:56 10/17/24 07:56
Physical Exam
Constitutional: No Acute Distress, Comfortable and Non-toxic
Eyes: No Conjunctival Hemorrhage and Sclera Anicteric
Cardiovascular: S1/S2; Negative S3/S4
Pulmonary: Non Labored
Gastrointestinal: Soft, Non Tender, Non Distended, No Rebound and No Guarding
Neurological: Awake and Alert
Psychological: Calm
Objective Data
Lab Data
Lab Results
10/17/24 08:05
10/17/24 08:05
Estimated Creat Clear 54 ml/min 10/17/24 08:05
Lactic Acid 1.5 mmol/L (0.7-2.0) 10/14/24 17:51
Total Bilirubin 0.5 mg/dl (0.2-1.3) 10/17/24 08:05
AST 41 U/L (17-59) 10/17/24 08:05
ALT 32 U/L (0-50) 10/17/24 08:05
Alkaline Phosphatase 84 U/L (38-126) 10/17/24 08:05
Most recent labs reviewed.
Micro Results:
10/14/24 21:25 CSF Culture - Preliminary
Csf No Growth After 72 Hours
Gram Stain - Preliminary
10/14/24 17:46 Blood Culture - Preliminary
Blood/Venous Pseudomonas aeruginosa
Gram Stain - Preliminary
10/14/24 20:40 Blood Culture - Preliminary
Blood/Venous No Growth in 48 hours- Final report to follow
10/16/24 16:12 Blood Culture - Pending
Blood/Venous
10/16/24 16:13 Blood Culture - Pending
Blood/Venous
10/14/24 21:25 Meningitis/Encephalitis Panel (PCR) - Final
Csf
10/14/24 17:46 Influenza Types A & B (EVER) - Final
Nasal Swab Negative for Influenza A & B, NAAT
Negative results must be combined with clinical observations
and patient history.
Nucleic Acid Amplification test (NAAT)performed on the
[employer] platform.
Blood Culture Preliminary 10/14/2024
Positive for Pseudomonas aeruginosa.
Performed by [employer] PCR methodology.
Organism 1 Pseudomonas aeruginosa
1. Pseudomonas aeruginosa
M.I.C. RX
--------- ---
Aztreonam >16 R
Cefepime 4 S
Ceftazidime 16 R
Ciprofloxacin <=0.25 S
Meropenem <=1 S
Piperacillin/Tazobactam <=8 S
Tobramycin <=2 S
Imaging:
10/14/2024 CT head without contrast: moderate diffuse cerebral and cerebellar volume loss. 3.4 cm band of encephalomalacia in the left basal ganglia. Mild periventricular white matter leukoaraiosis. No CT evidence for acute intracranial hemorrhage
or transcortical infarct.
[2024-10-17 15:38] VITALS: BP 125/70
--- NOTE | 2024-10-17 16:34 | W.PN.UPDATE ---
Update Note
Progress Note Update
Patient's nurse alerted me that his family was at the bedside and wished to speak with me. When I arrive, his's and daughter were in the room with him and had questions concerning his care thus far. I took time to explain his hospital course
thus far including his initial fever and positive blood culture without a definitive source of infection. I also reviewed the results of the Chest X-ray in the ED with them and answered any questions they had regarding his care. They all verbalized
understanding of my explanation and had no further questions.
Total time spent discussing patient care with him and his family: Approximately 20 minutes.
[2024-10-17] MEDS: ZESTRIL 5 MG PO (22:07)
[2024-10-17] MEDS: LIPITOR 10 MG PO (22:07)
[2024-10-17 23:00] VITALS: BP 139/83
--- NOTE | 2024-10-18 02:24 | DOWNTIME ---
There was a V[employer]IC Client [employer] Downtime on 10/18/2024 from 0100 to 10/18/2024 at 0220. Downtime documentation of patient's care, including medication administrations, has been reconciled in the electronic record per guidelines. Refer to the
patient's paper chart under the miscellaneous tab to see printed paper medication records and downtime forms.
[2024-10-18] MEDS: MAXIPIME 1000 MG IV ×4 (03:42→21:47)
[2024-10-18] MEDS: STERILE WATER FOR INJECTION 10 ML IV ×4 (03:43→21:48)
[2024-10-18] MEDS: WELLBUTRIN SR (12 hour sustained release) 150 MG PO ×2 (07:52→20:39)
[2024-10-18 08:03] LABS: Hematocrit 39.2 % (39.0-52.0); Hemoglobin 13.2 g/dL (13.0-18.0); Mean Corp Hgb Conc. 33.7 g/dL (33.0-37.0); Mean Corpuscular Volume 94.5 fL (80.0-94.0); Platelet Count 192 10^3/uL (130-400); Red Cell Dist. Width 14.2 % (11.5-14.5)
[2024-10-18 08:05] VITALS: BP 125/83
[2024-10-18 08:26] LABS: Blood Urea Nitrogen 24 mg/dl (9-20); Calcium 9.2 mg/dl (8.4-10.2); Carbon Dioxide 22 mmol/L (22-30); Chloride 111 mmol/L (98-107); Estimated Creatinine Clearance 54 ml/min; Glucose 120 mg/dl (70-99); Potassium 4.1 mmol/L (3.5-5.1); Sodium 143 mmol/L (135-145); eGFR > 60.00
--- NOTE | 2024-10-18 09:42 | W.PN.HOSP.TC ---
Today's Communication/Plan
-
F/u blood cultures
Assessment / Plan
Assessment / Plan
Assessment:
This is a 74 y/o male with pmhx of a new diagnosis of dementia and sleep apnea, hyperlipidemia, essential hypertension, CVA x2 (2001 and 2005). presented to the ED on 10/14/2024 with increasing confusion over the last 1-2 days found to have a fever
of 102.8 with no clear infection.
Plan:
Pseudomonas Bacteremia with Unknown Source of Original Infection
-Temperature 102.8, HR 92, BP 126/62, WBC 14.2 in the ED
-Current Temperature has remained less than 100F on Acetaminophen
-UA, Influenza, COVID, Lumbar puncture cytology negative
-Blood cultures x2, One culture has no growth to date, the other is positive for Pseudomonas. Unclear infectious origin of bacteremia at this point
-Repeat Blood cultures x2 pending
-Infectious Disease is following, will appreciate their insight into most appropriate antibiotic therapy. Patient is currently on IV Cefepime
Severe Periodontal Disease
-Patient with teeth that reportedly �pop� out
-No abnormal tooth/gum/jaw findings were found on CT scan of the head
-Continue soft diet
-Encouraged outpatient follow up
Obstructive Sleep Apnea
-New diagnosis. Noncompliant with CPAP due to claustrophobia
-Encouraged follow up outpatient
Mild Dementia with Increasing Confusion
-New diagnosis of Dementia, Increasing confusion likely 2/2 to fever of unknown origin
-Patient at risk for Delirium
-Maintain fall precautions
Essential Hypertension
-Continue home meds (Lisinopril)
Hyperlipidemia
-Continue home meds (Atorvastatin)
History of CVA x2
-CT on 10/14/2024 demonstrated a 3.4 cm band of encephalomalacia in the left basal ganglia and periventricular left frontal lobe consistent with chronic infarction or chronic resolved hemorrhage
-Patient should continue to avoid NSAIDs
Tobacco Dependence
-Patient smoked 1 ppd for 54 years, currently smokes 3-4 per day
-Encouraged cessation
-Continue albuterol inhaler PRN for SOB
Essential Tremors
-Continue home meds (Propranolol) with hold parameters
Anticipated Discharge: Within 24 hours
Subjective/Interval History
-
Date of Service: October 18, 2024
Patient was doing well when I arrived and had no concerns or complaints. He reports he feels better today than he has in months, and expresses that he is glad he is no longer confused because, 'I did not feel like myself.' He states that his is
on her way to the hospital right now with a change of clothes for him.
Objective Data
-
Labs:
Laboratory Results
10/18/24
06:59
WBC 7.9
Hgb 13.2
Hct 39.2
Plt Count 192
Sodium 143
Potassium 4.1
Chloride 111 H
Carbon Dioxide 22
BUN 24 H
Creatinine 1.2
Glucose 120 H
Calcium 9.2
Vital Signs:
Vital Signs
Temp Pulse Resp BP Pulse Ox
98.2 F 94 16 125/83 92
10/18/24 08:05 10/18/24 08:05 10/18/24 08:05 10/18/24 08:05 10/18/24 08:05
I&O
10/17/24 10/18/24 10/19/24
06:59 06:59 06:59
Intake Total 1200 / 1200 480 / 480
Output Total 200 / 200
Balance 1000 / 1000 480 / 480
Review of Systems
-
History Source: Patient
Constitutional: Denies Fever, Fatigue, Night Sweats, Chills or Weakness
Respiratory: Denies Cough, Trouble Breathing or Wheezing
Cardiac: Denies Chest Pain, Palpitations or Syncope
Abdomen/GI: Denies Abdominal Pain, Nausea, Vomiting, Diarrhea or Constipated
Genitourinary: Denies Dysuria
Skin: Denies Itching or Rash
Neuro: Denies Dizzy, Headache, Weakness or Numbness
Physical Exam
-
General: Well Developed, Well Nourished, No Apparent Distress and Comfortable
HEENT: Normocephalic and Atraumatic
Respiratory: Clear to Auscultation
Cardiac: Regular Rhythm and S1/S2
Skin: Warm and Dry
Neuro: Awake and Alert
Psych: Calm
--- NOTE | 2024-10-18 12:01 | CM ---
CM reviewed chart, patient seen bedside, reports no needs to CM at this time. IMM verbally reviewed, provided with copy, placed in chart. Patient plan remains home with family when stable. CM will continue to follow for all discharge planning needs.
Plan; home with family
[2024-10-18 16:09] VITALS: BP 123/75
[2024-10-18] MEDS: LIPITOR 10 MG PO (21:46)
[2024-10-18] MEDS: ZESTRIL 5 MG PO (21:47)
[2024-10-18 23:00] VITALS: BP 105/57
[2024-10-19] MEDS: MAXIPIME 1000 MG IV ×2 (03:41→09:40)
[2024-10-19] MEDS: STERILE WATER FOR INJECTION 10 ML IV ×2 (03:42→09:40)
[2024-10-19 07:13] VITALS: BP 146/85
[2024-10-19] MEDS: WELLBUTRIN SR (12 hour sustained release) 150 MG PO (07:32)
--- NOTE | 2024-10-19 10:23 | W.PN.HOSP.TC ---
Today's Communication/Plan
-
Pending blood cultures
Assessment / Plan
Assessment / Plan
Assessment:
This is a 74 y/o male with pmhx of a new diagnosis of dementia and sleep apnea, hyperlipidemia, essential hypertension, CVA x2 (2001 and 2005). presented to the ED on 10/14/2024 with increasing confusion over the last 1-2 days found to have a fever
of 102.8 with no clear infection.
Plan:
Pseudomonas Bacteremia with Unknown Source of Original Infection
-Temperature 102.8, HR 92, BP 126/62, WBC 14.2 in the ED
-Current Temperature has remained less than 100F on Acetaminophen
-UA, Influenza, COVID, Lumbar puncture cytology negative
-Blood cultures x2, Both cultures are now positive for Pseudomonas, with one culture also showing gram positive cocci. Unclear infectious origin of bacteremia at this point
-Repeat Blood cultures x2 pending. Currently no growth to date
-Infectious Disease is following, will appreciate their insight into most appropriate antibiotic therapy. Patient is currently on IV Cefepime
Severe Periodontal Disease
-Patient with teeth that reportedly �pop� out
-No abnormal tooth/gum/jaw findings were found on CT scan of the head
-Continue soft diet
-Encouraged outpatient follow up
Obstructive Sleep Apnea
-New diagnosis. Noncompliant with CPAP due to claustrophobia
-Encouraged follow up outpatient
Mild Dementia with Increasing Confusion
-New diagnosis of Dementia, Increasing confusion likely 2/2 to fever of unknown origin
-Patient at risk for Delirium
-Maintain fall precautions
Essential Hypertension
-Continue home meds (Lisinopril)
Hyperlipidemia
-Continue home meds (Atorvastatin)
History of CVA x2
-CT on 10/14/2024 demonstrated a 3.4 cm band of encephalomalacia in the left basal ganglia and periventricular left frontal lobe consistent with chronic infarction or chronic resolved hemorrhage
-Patient should continue to avoid NSAIDs
Tobacco Dependence
-Patient smoked 1 ppd for 54 years, currently smokes 3-4 per day
-Encouraged cessation
-Continue albuterol inhaler PRN for SOB
Essential Tremors
-Continue home meds (Propranolol) with hold parameters
Anticipated Discharge: Within 24 hours
Subjective/Interval History
-
Date of Service: October 19, 2024
Patient was doing well when I arrived. He was sitting in his chair fully dressed. He reports he feels much better than he has in a while, and denies any shortness of breath, chest pain, abdominal pain, headache, or any other concerns or complaints.
We reviewed the results of his blood cultures thus far, and he vocalized understanding. His was not present in the room, but will be in to visit him later.
Objective Data
-
Vital Signs:
Vital Signs
Temp Pulse Resp BP Pulse Ox
97.2 F 99 18 146/85 93
10/19/24 07:13 10/19/24 07:13 10/19/24 07:13 10/19/24 07:13 10/19/24 07:13
I&O
10/18/24 10/19/24 10/20/24
06:59 06:59 06:59
Intake Total 480 / 480
Balance 480 / 480
Review of Systems
-
History Source: Patient
Constitutional: Reports No Symptoms
EENT: Reports No Symptoms Reported
Respiratory: Reports No Symptoms
Cardiac: Reports No Symptoms
Abdomen/GI: Reports No Symptoms
Genitourinary: Reports No Symptoms
Musculoskeletal: Reports No Symptoms
Skin: Reports No Symptoms
Physical Exam
-
General: Well Developed, Well Nourished, No Apparent Distress and Comfortable
HEENT: Normocephalic and Atraumatic
Respiratory: Clear to Auscultation
Cardiac: Regular Rhythm and S1/S2
GI: Soft, Nontender, Nondistended and Normal Bowel Sounds
Skin: Warm and Dry
Neuro: Awake, Alert and Oriented
Psych: Calm and Intact Judgement/Insight
--- NOTE | 2024-10-19 11:27 | W.PN.ID1 ---
Date of Service
Date of Service: October 19, 2024
Today's Communication
Transition to oral ciprofloxacin. See below�
Assessment / Plan
Acute encephalopathy of unclear etiology
Fever
Pseudomonas bacteremia of unclear etiology.
Leukocytosis; improved, although still with left shift
Emphysema
HTN
HLD
Dementia
Hx CVA
Recommendations:
CSF studies essentially negative.
Blood culture positive for Pseudomonas from 2 of 4 bottles. Source unclear.
Repeat blood cultures without growth to date.
Transition to oral ciprofloxacin 500 mg BID, to continue through 10/27/2024.
����������������������������������������������������������
Chief Complaint
-: Bacteremia
Subjective / Review of Systems
Review of Systems: No Fever and No Chills
Vital Signs / Physical Exam
Vital Signs
Vital Signs
Temp Pulse Resp BP Pulse Ox
97.2 F 99 18 146/85 93
10/19/24 07:13 10/19/24 07:13 10/19/24 07:13 10/19/24 07:13 10/19/24 07:13
Physical Exam
Constitutional: No Acute Distress, Comfortable and Non-toxic
Eyes: No Conjunctival Hemorrhage and Sclera Anicteric
Cardiovascular: S1/S2; Negative S3/S4
Pulmonary: Non Labored
Gastrointestinal: Soft, Non Tender, Non Distended, No Rebound and No Guarding
Neurological: Awake and Alert
Psychological: Calm
Objective Data
Lab Data
Lab Results
10/18/24 06:59
10/18/24 06:59
Estimated Creat Clear 54 ml/min 10/18/24 06:59
Lactic Acid 1.5 mmol/L (0.7-2.0) 10/14/24 17:51
Total Bilirubin 0.5 mg/dl (0.2-1.3) 07/21/25 08:05
AST 41 U/L (17-59) 10/17/24 08:05
ALT 32 U/L (0-50) 10/17/24 08:05
Alkaline Phosphatase 84 U/L (38-126) 10/17/24 08:05
Most recent labs reviewed.
Micro Results:
10/14/24 20:40 Blood Culture - Preliminary
Blood/Venous Pseudomonas aeruginosa
Gram Stain - Preliminary
10/14/24 17:46 Blood Culture - Preliminary
Blood/Venous Pseudomonas aeruginosa
Gram Stain - Preliminary
10/14/24 21:25 CSF Culture - Final
Csf No Growth After 5 Days - Final Report
Gram Stain - Final
10/16/24 16:12 Blood Culture - Preliminary
Blood/Venous No Growth in 48 hours- Final report to follow
10/16/24 16:13 Blood Culture - Preliminary
Blood/Venous No Growth in 48 hours- Final report to follow
10/14/24 21:25 Meningitis/Encephalitis Panel (PCR) - Final
Csf
10/14/24 17:46 Influenza Types A & B (EVER) - Final
Nasal Swab Negative for Influenza A & B, NAAT
Negative results must be combined with clinical observations
and patient history.
Nucleic Acid Amplification test (NAAT)performed on the
[employer] platform.
Blood Culture Preliminary 10/14/2024
Positive for Pseudomonas aeruginosa.
Performed by [employer] PCR methodology.
Organism 1 Pseudomonas aeruginosa
1. Pseudomonas aeruginosa
M.I.C. RX
--------- ---
Aztreonam >16 R
Cefepime 4 S
Ceftazidime 16 R
Ciprofloxacin <=0.25 S
Meropenem <=1 S
Piperacillin/Tazobactam <=8 S
Tobramycin <=2 S
Imaging:
10/14/2024 CT head without contrast: moderate diffuse cerebral and cerebellar volume loss. 3.4 cm band of encephalomalacia in the left basal ganglia. Mild periventricular white matter leukoaraiosis. No CT evidence for acute intracranial hemorrhage
or transcortical infarct.
Care Review
Plan reviewed with: Physician (Hospitalist)
--- NOTE | 2024-10-19 11:39 | W.DCSUMMARY ---
Documented by User: Leahra Marcos DO, Resident 10/19/24 11:41
Discharge Summary
Discharge Data
Date of Admission: 10/14/24
Date of Discharge: 10/19/24
-
Pending Results: Yes (Repeat Blood cultures)
Hospital Course
This is a 74 y/o male with pmhx of a new diagnosis of dementia and sleep apnea, hyperlipidemia, essential hypertension, CVA x2 (2001 and 2005) who presented to the ED on 10/14/2024 with increasing confusion over the last 1-2 days. In the ED he was
found to have a temperature of 102.8. A chest-tray was negative for acute pathophysiology. CT of his head showed moderate diffuse cerebral cerebellar volume loss, a 3.4 cm band of encephalomalacia in the left basal ganglia and periventricular left
frontal lobe consistent with chronic infarction or chronic resolved hemorrhage, mild periventricular white mater leukoaraiosis.
He was started on Vancomycin and Ceftriaxone. CSF studies were essentially negative. Blood cultures were taken, and were positive for Pseudomonas with an unclear original source of infection. Antibiotics were changed to Cefepime. Repeat blood
cultures were drawn. Patient continued to improve clinically, and by 10/17/2024 was back to his baseline. He was found to be clinically stable and discharged to home on Ciprofloxacin 500mg BID through 10/27/2024, with instructions to follow up with
his PCP in less than one week. He was also instructed to avoid taking NSAIDs due to CT Head findings listed above.
Discharge Plan
-
Patient Disposition: Home (Routine Discharge)
Discharge Diagnosis/Procedures: Pseudomonas Bacteremia with Unknown Source of Original Infection, Severe Periodontal Disease, Obstructive Sleep Apnea, Mild Dementia with Increasing Confusion, Essential Hypertension, Hyperlipidemia, History of CVA
x2, Tobacco Dependence, Essential Tremors
Condition: Good
Diet: No restrictions
Activity: No restrictions
Driving Restrictions: As prior to admission
Bathing Restrictions: None
Referrals:
Sana Quiroga CRNP [Family Provider, Neurology]
Additional Discharge Medication Instructions: You should AVOID taking Non-Steroidal Anti-Inflammatory Drugs (NSAIDS) such Ibuprofen/Advil/Motrin and Naproxen/Aleve.
We are prescribing you an antibiotic called Ciprofloxacin (Cipro). Please take this medication twice a day beginning tonight, until you have completed the antibiotic course and all of the pills are gone.
Please follow up with your primary care physician in less than 1 week.
Prescriptions:
New
ciprofloxacin HCl 500 mg Tablet
500 mg PO BID 8 Days Qty: 15 0RF
Continued
acetaminophen 325 MG tablet
650 mg PO Q4HPRN PRN (Reason: mild to moderate pain) Qty: 0 0RF
albuterol
90 mcg inhalation Q4H PRN (Reason: Wheezing shortness of breath)
Rx Instructions:
2 puffs
bupropion HCl 150 MG tablet sustained-release 12 hr
150 mg PO BID Qty: 0 0RF
atorvastatin 10 MG tablet
10 mg PO HS Qty: 0 0RF
lisinopril 5 MG tablet
5 mg PO HS Qty: 0 0RF
Discontinued
ibuprofen 200 MG tablet
400 - 600 mg PO Q6HPRN PRN (Reason: mild to moderate pain) Qty: 0 0RF
Rx Instructions:
Both patient and made aware not to take this if history of hemorrhagic bleeds
Discharge Orders:
Discharge Patient (As Directed); Ordered 10/19/24
Ordered By: Leah Rodríguez
Discharge Date and Time
Print Language: HONDURAN

Documented by User: Yong Friedman DO 10/19/24 12:10
Discharge Summary
Discharge Data
Date of Admission: 10/14/24
Date of Discharge: 10/19/24
Discharge Plan
-
Patient Disposition: Home (Routine Discharge)
Discharge Diagnosis/Procedures: Pseudomonas Bacteremia with Unknown Source of Original Infection, Severe Periodontal Disease, Obstructive Sleep Apnea, Mild Dementia with Increasing Confusion, Essential Hypertension, Hyperlipidemia, History of CVA
x2, Tobacco Dependence, Essential Tremors
Condition: Good
Diet: No restrictions
Activity: No restrictions
Driving Restrictions: As prior to admission
Bathing Restrictions: None
Referrals:
Sana Quiroga CRNP [Family Provider, Neurology]
Additional Discharge Medication Instructions: You should AVOID taking Non-Steroidal Anti-Inflammatory Drugs (NSAIDS) such Ibuprofen/Advil/Motrin and Naproxen/Aleve.
We are prescribing you an antibiotic called Ciprofloxacin (Cipro). Please take this medication twice a day beginning tonight, until you have completed the antibiotic course and all of the pills are gone.
Please follow up with your primary care physician in less than 1 week.
Prescriptions:
New
ciprofloxacin HCl 500 mg Tablet
500 mg PO BID 8 Days Qty: 15 0RF
Continued
acetaminophen 325 MG tablet
650 mg PO Q4HPRN PRN (Reason: mild to moderate pain) Qty: 0 0RF
albuterol
90 mcg inhalation Q4H PRN (Reason: Wheezing shortness of breath)
Rx Instructions:
2 puffs
bupropion HCl 150 MG tablet sustained-release 12 hr
150 mg PO BID Qty: 0 0RF
atorvastatin 10 MG tablet
10 mg PO HS Qty: 0 0RF
lisinopril 5 MG tablet
5 mg PO HS Qty: 0 0RF
Discontinued
ibuprofen 200 MG tablet
400 - 600 mg PO Q6HPRN PRN (Reason: mild to moderate pain) Qty: 0 0RF
Rx Instructions:
Both patient and made aware not to take this if history of hemorrhagic bleeds
Discharge Orders:
Discharge Patient (As Directed); Ordered 10/19/24
Ordered By: Leah Rodríguez
Discharge Date and Time
Print Language: HONDURAN
[2024-10-19] MEDS: CIPRO 500 MG PO (12:04)
--- NOTE | 2024-10-19 12:26 | CM ---
CM reviewed chart, patient for discharge today. CM offered VN to patient, declining at this time, discussed PCP can order VN once patient discharged home. IMM provided yesterday. Patient family to transport home. CM will continue to follow for all
discharge planning needs.
Plan; home with family, no needs.
== END 2024-10-19 13:14 | disposition home or self-care (01) | DRG 71 ==
LOC: 4 WEST ACU 22:29
PROVIDERS: Clinical Nurse Specialist Family Health; Physician Assistant; ADMITTING PHYSICIAN Internal Medicine; ATTENDING PHYSICIAN Internal Medicine; CONSULT PHYSICIAN Internal Medicine Infectious Disease; EMERGENCY PHYSICIAN Emergency Medicine; FAMILY PHYSICIAN Nurse Practitioner Adult Health
DX: G93.40 Encephalopathy, unspecified (principal); R47.01 Aphasia; R78.81 Bacteremia; B96.5 Pseudomonas (aeruginosa) (mallei) (pseudomallei) as the cause of diseases classified elsewhere; E78.00 Pure hypercholesterolemia, unspecified; G47.33 Obstructive sleep apnea (adult) (pediatric); F17.210 Nicotine dependence, cigarettes, uncomplicated; G25.0 Essential tremor; K05.6 Periodontal disease, unspecified; F03.A0 Unspecified dementia, mild, without behavioral disturbance, psychotic disturbance, mood disturbance, and anxiety; Z86.73 Personal history of transient ischemic attack (TIA), and cerebral infarction without residual deficits; I10 Essential (primary) hypertension; Z85.828 Personal history of other malignant neoplasm of skin; J43.9 Emphysema, unspecified; Z11.52 Encounter for screening for COVID-19; G93.89 Other specified disorders of brain
CPT/HCPCS: 62270; 70450; 71046; 80048; 80053; 81003; 81015; 82945; 83605; 83735; 84157; 85025; 85027; 87015; 87040; 87070; 87077; 87154; 87186; 87205; 87483; 87502; 87811; 89051; 96365; 96366; 96375; 97116; 97162; 97166; 99285; 99406

== ENCOUNTER → 2025-01-09 10:53 | Outpatient (REF) | payer MEDICARE, OTHER, SELFPAY | LOC: PAVMRI 10:53 | PROVIDERS: ATTENDING PHYSICIAN Family Medicine | DX: Z09 Encounter for follow-up examination after completed treatment for conditions other than malignant neoplasm (principal); Z86.73 Personal history of transient ischemic attack (TIA), and cerebral infarction without residual deficits; G45.9 Transient cerebral ischemic attack, unspecified | CPT/HCPCS: 70546; 70549; 70553; A9585 ==